=== PATIENT | female | born 1940 | race African-American/Black ===

== ENCOUNTER 2017-10-26 02:18 | Emergency (ER) | payer MEDICARE ==
[~2017-10-26] VITALS: Ht 160 cm; Wt 50.0 kg
[2017-10-26 02:37] VITALS: BP 128/66
== END 2017-10-26 03:27 | disposition left against medical advice (07) ==
LOC: ER 02:39
DX: R42 Dizziness and giddiness (principal); R51 Headache; M25.552 Pain in left hip; Z53.21 Procedure and treatment not carried out due to patient leaving prior to being seen by health care provider; W19.XXXA Unspecified fall, initial encounter; Y93.89 Activity, other specified; Y92.89 Other specified places as the place of occurrence of the external cause; Y99.8 Other external cause status